=== PATIENT | male | born 1975 | race Caucasian/White ===

== ENCOUNTER 2020-02-11 22:08 | Emergency (ER) | payer MEDICARE ==
--- NOTE | 2020-02-11 22:22 | EDM.PDOC ---
ED HPI GENERAL MEDICAL PROBLEM - General Stated Complaint: ER Time Seen by Provider: 02/11/20 22:10 Source of Information: Reports: Patient, EMS History Limitations: Reports: No Limitations, Intoxication - History of Present Illness INITIAL COMMENTS - FREE TEXT/NARRATIVE: Patient comes emergency department today by ambulance with concerns of an injury to his right ankle. 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 Once he was done with his work he tried to jump over a fence and landed injuring his right ankle. He was unable to stand on it due to pain. There was no deformity initially. He did not hit his head. There was no loss of consciousness. He denies any other injury other than injury to his right ankle. A splint was applied by the ambulance prior to arrival. He was also given 100mcg prior to arrival which much improved his pain. Right Ankle Pain Score (Numeric/FACES): 5 - Related Data Allergies Allergy/AdvReac Type Severity Reaction Status Date / Time bees Allergy Anaphylactic Uncoded 02/11/20 22:43 Shock Home Meds: Home Meds Acetaminophen/HYDROcodone [[place] 325-5 MG] 1 tab PO Q6H #15 tablet 02/11/20 [Rx] Hydrocodone/Acetaminophen [[place] 5-325 Tablet] 1 each PO Q6HR PRN #15 tablet [Rx] Review of Systems - Review of Systems Review Of Systems: Comprehensive ROS is negative, except as noted in HPI. ED EXAM, GENERAL - Physical Exam Exam: See Below Free Text/Narrative:: Smells highly of alcoholic beverages. Exam Limited By: No Limitations General Appearance: Alert, WD/WN, No Apparent Distress Eye Exam: Bilateral Eye: EOMI, Nystagmus Ears: Normal External Exam Nose: Normal Inspection Throat/Mouth: Normal Inspection Head: Atraumatic, Normocephalic Neck: Normal Inspection Respiratory/Chest: No Respiratory Distress Cardiovascular: Normal Peripheral Pulses, Regular Rate, Rhythm Back Exam: Normal Inspection, Full Range of Motion. No: Paraspinal Tenderness, Vertebral Tenderness Extremities: No: Normal Inspection (Examination is isolated to the right lower extremity. He does have a small amount of medial and lateral malleolus swelling. He is able to flex and extend and rotate the right ankle. Pedal pulses are appropriate. The rest of the foot is atraumatic. Rest of the right lower extremity is atraumatic as well.) Neurological: Alert, Oriented Psychiatric: Normal Affect, Normal Mood Skin Exam: Warm, Dry, Intact, Normal Color Course - Vital Signs Last Recorded V/S: Last Vital Signs Temp 36.6 C 02/11/20 22:25 Pulse 91 02/11/20 22:25 Resp 16 02/11/20 22:25 BP 125/83 02/11/20 22:25 Pulse Ox 95 02/11/20 22:25 - Orders/Labs/Meds Orders: Active Orders 24 hr Category Date Time Status Ankle Min 3V Rt [CR] Stat Exams 02/11/20 22:12 Taken Meds: Medications Discontinued Medications Generic Name Dose Route Start Last Admin Trade Name Janelle PRN Reason Stop Dose Admin Ketorolac Tromethamine 30 mg 02/11/20 22:51 02/11/20 23:05 Toradol IVPUSH 02/11/20 22:52 30 mg ONETIME ONE Administration - Radiology Interpretation Free Text/Narrative:: Comminuted nondisplaced compressed calcaneus fracture. - Re-Assessments/Exams Free Text/Narrative Re-Assessment/Exam: 02/11/20 22:53 He received Ketorolac for pain in the ED. He did drink 20 beers today which is about normal for him he reports. He has a nondisplaced comminuted right calcaneus fracture. Walking boot no weight bearing with crutches at all times. I will not send anything home tonight for pain as he is admittedly intoxicated. RX given to the patients family who came to give him a ride home. With the findings of the comminuted fracture of the calcaneus and the force of injury that is required for this I went back and reexamined the patient. He did not have any signs of injury to his right lower extremity pelvis that was stable that was nonpainful. Palpation on the posterior midline spine does not identify any tenderness bony deformities or step-offs. He was informed of the findings of his x-ray as well as the plan of care to follow up with podiatry next available. We were able to get a friend who was sober who was able to come and get the patient. 02/11/20 23:46 Departure - Departure Time of Disposition: 22:25 Disposition: Home, Self-Care 01 Clinical Impression: Calcaneal fracture Qualifiers: Encounter type: initial encounter Calcaneus location: unspecified portion of calcaneus Fracture type: closed Fracture alignment: nondisplaced Laterality: right Qualified Code(s): S92.001A - Unspecified fracture of right calcaneus, initial encounter for closed fracture - Discharge Information *PRESCRIPTION DRUG MONITORING PROGRAM REVIEWED*: Not Applicable *COPY OF PRESCRIPTION DRUG MONITORING REPORT IN PATIENT ELIZABETH: Not Applicable Prescriptions: Hydrocodone/Acetaminophen [[place] 5-325 Tablet] 1 each PO Q6HR PRN #15 tablet PRN Reason: Pain Acetaminophen/HYDROcodone [[place] 325-5 MG] 1 tab PO Q6H #15 tablet Instructions: Crutch Use, Adult, [id number], Walking Boot, Adult Additional Instructions: Tylenol and or Ibuprofen as needed for pain. Walking Boot at all times ABSOLUTELY no weight bearing on the foot what so ever. Crutch walking at all times with ABSOLUTELY no weight bearing on the right foot. RICE therapy. Keep the foot above the level of your heart as much as possible. Ice the foot as much as possible. Follow up with [facility]. Call [phone] right away in the morning saturday to make an appointment to see a ambulatory service representative next available appointment. The address for podiatry in [place] in [address] [place] [id number] If pain not controlled with the above. [place] 1 tablet every 4 hrs with food as needed for pain. Caution sedation. YOU CAN NOT TAKE THIS MEDICATION and drink alcohol what so ever!. RX to [facility]. Return to the ED if new or worsening symptoms. Sepsis Event Note - Focused Exam Vital Signs: Vital Signs Temp Pulse Resp BP Pulse Ox 02/11/20 22:25 36.6 C 91 16 125/83 95 Date Exam was Performed: 02/11/20 Time Exam was Performed: 23:40 - My Orders Last 24 Hours: My Active Orders 02/11/20 22:12 Ankle Min 3V Rt [CR] Stat - Assessment/Plan Last 24 Hours: My Active Orders 02/11/20 22:12 Ankle Min 3V Rt [CR] Stat Assessment:: Comminuted non-displaced compressed calcaneus fracture. Plan: Tylenol and or Ibuprofen as needed for pain. Walking Boot at all times ABSOLUTELY no weight bearing on the foot what so ever. Crutch walking at all times with ABSOLUTELY no weight bearing on the right foot. RICE therapy. Keep the foot above the level of your heart as much as possible. Ice the foot as much as possible. Follow up with [facility]. Call [phone] right away in the morning saturday to make an appointment to see a ambulatory service representative next available appointment. [address] for [place]iatry [place] [address] [place] [address] If pain not controlled with the above. [place] 1 tablet every 4 hrs with food as needed for pain. Caution sedation. YOU CAN NOT TAKE THIS MEDICATION and drink alcohol what so ever!. RX to [facility]. Return to the ED if new or worsening symptoms.
[2020-02-11] MEDS ORDERED: Ketorolac 30 MG/ML SDV IVPUSH ONE (22:51)
--- NOTE | 2020-02-12 08:11 | CR ---
[id number] RAD/RAD Ankle Right 3V Min EXAM: RAD Ankle Right 3V Min CLINICAL DATA: TRAUMA COMPARISON: NO PREVIOUS SIMILAR EXAM IS AVAILABLE. FINDINGS: A depressed comminuted calcaneal fracture is seen with articular involvement Consider CAT scan. IMPRESSION: COMPLEX CALCANEAL FRACTURE Poncho Hummel MD 02/12/20 [id number] Thank you for allowing us to participate in the care of your patient.
== END 2020-02-11 23:45 | disposition home or self-care (01) ==
LOC: VM.ED 22:08
DX: S92.001A Unspecified fracture of right calcaneus, initial encounter for closed fracture (principal); Z91.030 Bee allergy status; W17.89XA Other fall from one level to another, initial encounter
CPT/HCPCS: 73610-RT; 96374; 99283-GF; 99284-25; J1885

== ENCOUNTER 2020-03-03 18:12 | Emergency (ER) | payer MEDICARE, MEDICAID, OTHER ==
--- NOTE | 2020-03-03 18:31 | EDM.PDOC ---
ED HPI GENERAL MEDICAL PROBLEM - General Chief Complaint: Allergic Reaction Stated Complaint: Bee sting Time Seen by Provider: 03/03/20 18:23 Source of Information: Reports: Patient History Limitations: Reports: Intoxication - History of Present Illness INITIAL COMMENTS - FREE TEXT/NARRATIVE: Patient comes emergency department today by ambulance with complaints of a bee sting to his left humerus. 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 He does have an epinephrine injector although he did not have it with him. Today he was out drinking beer like he typically is and typically drinks about 20 beers a day. A bee stung him on the posterior aspect of his left humerus. He had some swelling to the area so he called the ambulance. Upon arrival of the ambulance the patient was still drinking beer and would not get on the cot until he was able to finish it. He was also smoking marijuana upon their arrival. He denied any shortness of breath difficulty breathing weakness dizziness lightheadedness. He was given Benadryl 50 mg IV enroute to the emergency department. Upon arrival the patient is without any difficulty breathing chest pain palpitations. He does complain of some itching to the posterior aspect of his left humerus region. - Related Data Allergies Allergy/AdvReac Type Severity Reaction Status Date / Time bees Allergy Anaphylactic Uncoded 03/03/20 18:21 Shock Home Meds: Home Meds EPINEPHrine [Epipen] 0.3 mg IM ONETIME PRN #2 ml 03/03/20 [Rx] predniSONE 40 mg PO DAILY #10 tab 03/03/20 [Rx] Past Medical History - Past Health History Medical/Surgical History: Denies Medical/Surgical History ED ROS ALLERGIC REACTION - Review of Systems Review Of Systems: Comprehensive ROS is negative, except as noted in HPI. ED EXAM GENERAL NO PERIP PULSE - Physical Exam Exam: See Below Exam Limited By: Intoxication General Appearance: Alert, WD/WN, No Apparent Distress Eye Exam: Bilateral Eye: EOMI, Proptosis Ears: Normal External Exam, Normal TMs Nose: Normal Inspection, Normal Mucosa Throat/Mouth: Normal Inspection, Normal Lips, Normal Teeth, Normal Gums, Normal Oropharynx, Normal Voice, No Airway Compromise, Other (no swelling in the oropharynx. ) Head: Atraumatic, Normocephalic Neck: Normal Inspection Respiratory/Chest: No Respiratory Distress, Lungs Clear, Normal Breath Sounds, No Accessory Muscle Use, Chest Non-Tender Cardiovascular: Normal Peripheral Pulses, Regular Rate, Rhythm GI/Abdominal: Normal Bowel Sounds, Soft, Non-Tender, No Organomegaly (Male) Exam: Deferred Rectal (Males) Exam: Deferred Back Exam: Normal Inspection, Full Range of Motion Extremities: Normal Range of Motion, Non-Tender, No Pedal Edema, Normal Capillary Refill, Other (He has a cast to the right lower extremity chronically for a recent calcaneous fracture. ). No: Normal Inspection (On the posterior aspect of his left humerus there is too little very small puncture wound. That are surrounded by an area of a swelling and a wheal. This is about 3 cm in diameter.) Neurological: Alert, Oriented, Normal Cognition, No Motor/Sensory Deficits Psychiatric: Normal Affect, Normal Mood Skin Exam: Warm, Dry, Intact, Normal Color, No Rash Course - Vital Signs Last Recorded V/S: Last Vital Signs Temp 36.6 C 03/03/20 18:15 Pulse 90 03/03/20 18:15 Resp 16 03/03/20 18:15 BP 129/91 H 03/03/20 18:15 Pulse Ox 95 03/03/20 18:15 - Orders/Labs/Meds Meds: Medications Discontinued Medications Generic Name Dose Route Start Last Admin Trade Name Janelle PRN Reason Stop Dose Admin Famotidine 20 mg 03/03/20 18:23 03/03/20 18:41 Pepcid IVPUSH 03/03/20 18:24 20 mg ONETIME ONE Administration Methylprednisolone Sodium Succinate 125 mg 03/03/20 18:23 03/03/20 18:41 Solu-Medrol IVPUSH 03/03/20 18:24 125 mg ONETIME ONE Administration - Re-Assessments/Exams Free Text/Narrative Re-Assessment/Exam: 03/03/20 21:50 He was given Pepcid 20mg IV Solumedrol 125mg IVP Patient has no signs of anaphylaxis at this time. He has a localized bee sting reaction. We will send him home with some prednisone. I did discuss with him the vital importance of always having his epinephrine pen with him due to his history of anaphylaxis. We will send him home with some prednisone as well for the next couple of days. He is comfortable with this plan his questions are answered. 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 Local reaction to bee sting Qualifiers: Encounter type: initial encounter Injury intent: undetermined intent Qualified Code(s): T63.444A - Toxic effect of venom of bees, undetermined, initial encounter - Discharge Information Prescriptions: EPINEPHrine [Epipen] 0.3 mg IM ONETIME PRN #2 ml PRN Reason: Allergies predniSONE 40 mg PO DAILY #10 tab Instructions: How to Use an Auto-Injector Pen, Bee, Wasp, or Hornet Sting, Adult Referrals: PCP,None [Primary Care Provider] - Forms: ED Department Discharge Additional Instructions: Make sure you always have your Epi pen when you are outside and could be exposed to Bee Stings. A Rx was sent to the pharmacy in [place]. Prednisone 40mg daily for the next 5 days. Rx to [place]. Start Saturday. Benadryl as needed for itching rash or hives. Zyrtec or Yu if continued rash itching that is not as sedating OTC. Consider alcohol treatment. Return to the ED if new or worsening symptoms. Follow up with PCP if any concerns. Sepsis Event Note (ED) - Focused Exam Vital Signs: Vital Signs Temp Pulse Resp BP Pulse Ox 03/03/20 18:15 36.6 C 90 16 129/91 H 95 - Assessment/Plan Assessment:: Bee sting with local reaction. Plan: Make sure you always have your Epi pen when you are outside and could be exposed to Bee Stings. A Rx was sent to the pharmacy in [place]. Prednisone 40mg daily for the next 5 days. Rx to [place]. Start Saturday morning. Benadryl as needed for itching rash or hives. Zyrtec or Yu if continued rash itching that is not as sedating OTC. Consider alcohol treatment. Return to the ED if new or worsening symptoms. Follow up with PCP if any concerns.
[2020-03-03] MEDS: methylPREDNISolone Sodium Succinate 125 MG/2 ML SDV IVPUSH ONE (18:41)
[2020-03-03] MEDS: Famotidine 20 MG/2 ML SDV IVPUSH ONE (18:41)
== END 2020-03-03 20:00 | disposition home or self-care (01) ==
LOC: VM.ED 18:12
DX: T63.441A Toxic effect of venom of bees, accidental (unintentional), initial encounter (principal); T78.2XXA Anaphylactic shock, unspecified, initial encounter; Z91.030 Bee allergy status
CPT/HCPCS: 96374; 96375; 99283; J2930; J3490